=== PATIENT | female | born 2000 | race Two or more races ===

== ENCOUNTER 2020-01-04 19:09 | Emergency (ER) | payer OTHER ==
[~2020-01-04] VITALS: Ht 167.6 cm; Wt 59.0 kg
--- NOTE | 2020-01-04 19:16 | NUR ---
DR VALENCIA AT THE BED SIDE
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
--- NOTE | 2020-01-04 19:22 | NUR ---
CALLED POISON CONTROL [phone] SPOKE WITH TREASURE: WATCH FOR VOMITTING, DO TOXICOLOGY AND CHEMISTRY. OBSERVE FOR 4 HOURS FROM TIME OF INGESTION. POSSIBLE GI IRRITATION.
--- NOTE | 2020-01-04 19:31 | NUR ---
TOLL LINE MECHANIC AT BEDSIDE FOR LAB. AWAITING URINE SAMPLE.
[2020-01-04 19:34] LABS: BASOPHILS % (AUTO) 0.7 % (0.0-2.0); EOSINOPHILS % (AUTO) 1.1 % (0.0-6.0); HEMATOCRIT 41 % (33-45); HEMOGLOBIN 13.6 g/dL (11.5-14.8); LYMPHOCYTES # (AUTO) 1.5 /CMM (0.8-4.8); LYMPHOCYTES % (AUTO) 31.1 % (20.0-44.0); MEAN CORPUSCULAR HGB CONC 33 g/dl (31.0-36.0); MEAN CORPUSCULAR VOLUME 88 fL (82-100); MONOCYTES # (AUTO) 0.4 /CMM (0.1-1.30); MONOCYTES % (AUTO) 8.9 % (2.0-12.0); NEUTROPHILS # (AUTO) 2.9 /CMM (1.8-8.9); NEUTROPHILS % (AUTO) 58.2 % (43.0-81.0); PLATELET COUNT (AUTO) 366 /CMM (150-450); RED BLOOD CELL COUNT(AUTO) 4.66 MIL/uL (4.0-5.2); WHITE BLOOD COUNT (AUTO) 4.9 K/uL (4.3-11.0)
[2020-01-04 19:40] LABS: CALCIUM, SERUM 8.4 mg/dL (8.5-10.1); CARBON DIOXIDE 26 mmol/L (21-32); CHLORIDE 106 mmol/L (98-107); CREATININE 0.8 mg/dL (0.6-1.3); GLUCOSE 86 mg/dL (74-106); POTASSIUM 3.6 mmol/L (3.5-5.1); SODIUM SERUM 142 mmol/L (136-145); UREA NITROGEN, BLOOD 12 mg/dL (7-18)
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
--- NOTE | 2020-01-04 19:42 | NUR ---
PT PLACED ON RESTRAINTS PER MD VERBAL ORDER.
[2020-01-04 19:46] LABS: ACETAMINOPHEN 0 ug/ml (10-30); ALANINE AMINOTRANSFERASE 26 U/L (12-78); ALBUMIN 3.5 g/dL (3.4-5.0); ALCOHOL, BLOOD < 3 mg/dL (0-0); ALKALINE PHOSPHATASE 108 U/L (46-116); ASPARTATE AMINOTRANSFERASE 18 U/L (15-37); BILIRUBIN,DIRECT 0.1 mg/dL (0.0-0.2); BILIRUBIN,TOTAL 0.3 mg/dL (0.2-1.0); SALICYLATE 0.8 mg/dL (2.8-20.0); TOTAL PROTEIN, SERUM 7.5 g/dL (6.4-8.2)
[2020-01-04 20:34] LABS: BILIRUBIN,URINE Negative (NEGATIVE); BLOOD, URINE Negative Ery/uL (NEGATIVE); COLOR,URINE Yellow (YELLOW); KETONES,URINE Negative (NEGATIVE); LEUKOCYTE ESTERASE ,URINE Negative (NEGATIVE); NITRITE, URINE Negative (NEGATIVE); PROTEIN,URINE Negative (NEGATIVE); UGLUCOSE Negative (NEGATIVE); UROBILINOGEN,URINE 0.2 EU/dL (0.2)
--- NOTE | 2020-01-04 20:38 | NUR ---
PT NOW COOPERATIVE, RESTRAINTS REMOVED. AWAITING URINE SAMPLE.
[2020-01-04 20:41] LABS: APPEARANCE,URINE CLEAR (CLEAR)
--- NOTE | 2020-01-04 21:17 | NUR ---
PAGED CHARGE LOADER
--- NOTE | 2020-01-04 21:41 | NUR ---
Patient is resting comfortably in bed. Easily aroused. VSS
--- NOTE | 2020-01-04 22:17 | NUR ---
REC'D A CALL FROM FRACISCO FROM CRISIS TEAM. PER FRACISCO, SHE WILL BE HERE IN AN HOUR.
--- NOTE | 2020-01-05 01:27 | NUR ---
Patient is resting comfortably in bed. Easily aroused. VSS.
--- NOTE | 2020-01-05 02:23 | NUR ---
RECALLED JUDITH BRUSH PAINTER. NO ANSWER
--- NOTE | 2020-01-05 02:24 | NUR ---
RECEIVED CALL FROM JUDITH CAHN, SAYS SHE'LL BE HERE SOON IN AN HOUR OR SO.
--- NOTE | 2020-01-05 03:05 | NUR ---
FRACISCO AT BEDSIDE
[2020-01-05 03:35] VITALS: BP 123/75
--- NOTE | 2020-01-05 03:35 | NUR ---
Patient discharged to home in stable condition. Written and verbal after care instructions given. Patient verbalizes understanding of instruction. Pt ambulated with steady gait. Left using an UBER.
== END 2020-01-05 03:36 | disposition home or self-care (01) ==
LOC: ER 19:10
DX: T54.92XA Toxic effect of unspecified corrosive substance, intentional self-harm, initial encounter (principal); F32.9 Major depressive disorder, single episode, unspecified; Y92.89 Other specified places as the place of occurrence of the external cause
CPT/HCPCS: 36415; 80048; 80076; 80305; 80307; 80329; 81001; 84703; 85025; 99285; G0480; 81000-TC

== ENCOUNTER 2020-11-22 08:30 | Emergency (ER) | payer OTHER ==
[~2020-11-22] VITALS: Ht 160 cm; Wt 60.8 kg
[2020-11-22] MEDS ORDERED: ONDANSETRON HCL/PF 4 MG/2 ML VIAL ONE (08:43)
--- NOTE | 2020-11-22 08:45 | NUR ---
Patient came in to the er c/o Nausea, vomiting, and abdominal pain since this morning. On room air, breathing evenly and unlabored. Connected to the monitor and pulse ox. kept comfortable, will continue to monitor accordingly.
[2020-11-22] MEDS ORDERED: IV NS 0.9% 1,000 ML BAG IV ONE (09:00)
[2020-11-22] MEDS ORDERED: ONDANSETRON HCL/PF 4 MG/2 ML VIAL IVP ONE (09:00)
[2020-11-22 09:01] LABS: BASOPHILS % (AUTO) 0.6 % (0.0-2.0); BILIRUBIN,URINE Negative (NEGATIVE); COLOR,URINE YELLOW (YELLOW); HEMATOCRIT 40 % (33-45); HEMOGLOBIN 13.3 g/dL (11.5-14.8); LEUKOCYTE ESTERASE ,URINE Negative (NEGATIVE); LYMPHOCYTES # (AUTO) 0.8 /CMM (0.8-4.8); LYMPHOCYTES % (AUTO) 9.7 % (20.0-44.0); MEAN CORPUSCULAR HGB CONC 33 g/dl (31.0-36.0); MEAN CORPUSCULAR VOLUME 87 fL (82-100); MONOCYTES # (AUTO) 0.2 /CMM (0.1-1.30); MONOCYTES % (AUTO) 2.8 % (2.0-12.0); NEUTROPHILS # (AUTO) 6.8 /CMM (1.8-8.9); NEUTROPHILS % (AUTO) 86.9 % (43.0-81.0); NITRITE, URINE Negative (NEGATIVE); PH,URINE 8.5 (5.0-8.0); PLATELET COUNT (AUTO) 311 /CMM (150-450); PROTEIN,URINE Trace mg/dl (NEGATIVE); RED BLOOD CELL COUNT(AUTO) 4.61 MIL/uL (4.0-5.2); UGLUCOSE Negative (NEGATIVE); UROBILINOGEN,URINE 0.2 EU/dL (0.2); WHITE BLOOD COUNT (AUTO) 7.8 K/uL (4.3-11.0)
[2020-11-22 09:05] LABS: BACTERIA,URINE Few /HPF (None Seen); RBC,URINE 0-2 /HPF (0-2); WBC,URINE 0-2 /HPF (0-3)
[2020-11-22 09:33] LABS: CALCIUM, SERUM 9.2 mg/dL (8.5-10.1); CREATININE 0.6 mg/dL (0.6-1.3); POTASSIUM 3.6 mmol/L (3.5-5.1)
[2020-11-22 09:38] LABS: ALBUMIN 4.2 g/dL (3.4-5.0); BILIRUBIN,DIRECT 0.1 mg/dL (0.0-0.2); BILIRUBIN,TOTAL 0.3 mg/dL (0.2-1.0); TOTAL PROTEIN, SERUM 8.4 g/dL (6.4-8.2)
[2020-11-22] MEDS ORDERED: ONDA4TAB5 PO (09:45)
[2020-11-22 10:04] VITALS: BP 111/68
--- NOTE | 2020-11-22 10:04 | NUR ---
Patient discharged to home in stable condition. Written and verbal after care instructions given. Patient verbalizes understanding of instruction.IV removed. Catheter intact and site benign. Pressure and 4x4 applied to site. No bleeding noted.
== END 2020-11-22 10:04 | disposition home or self-care (01) ==
LOC: ER 08:33
DX: R11.2 Nausea with vomiting, unspecified (principal); R10.84 Generalized abdominal pain
CPT/HCPCS: 36415; 80048; 80076; 81001; 83690; 84703; 85025; 96361; 96374; 99283; J2405; J7030

== ENCOUNTER 2021-01-13 23:47 | Emergency (ER) | payer OTHER ==
[~2021-01-13] VITALS: Ht 167.6 cm; Wt 59.0 kg
[~2021-01-13 23:47] MED LIST: ONDA4TAB5 PO
[2021-01-14] MEDS ORDERED: CEFTRIAXONE 500 MG VIAL IM ONE (01:00)
[2021-01-14] MEDS ORDERED: METRONIDAZOLE 500 MG TABLET PO ONE (01:00)
[2021-01-14] MEDS ORDERED: AZITHROMYCIN 250 MG TABLET PO ONE (01:00)
[2021-01-14 01:06] LABS: BILIRUBIN,URINE Negative (NEGATIVE); COLOR,URINE YELLOW (YELLOW); LEUKOCYTE ESTERASE ,URINE Small (NEGATIVE); NITRITE, URINE Negative (NEGATIVE); PH,URINE 6.5 (5.0-8.0); PROTEIN,URINE Trace mg/dl (NEGATIVE); UGLUCOSE Negative (NEGATIVE); UROBILINOGEN,URINE 0.2 EU/dL (0.2)
[2021-01-14] MEDS ORDERED: METRONIDAZOLE 500 MG TABLET ONE (01:13)
[2021-01-14] MEDS ORDERED: CEFTRIAXONE 500 MG VIAL ONE (01:13)
[2021-01-14] MEDS ORDERED: AZITHROMYCIN 250 MG TABLET ONE (01:13)
[2021-01-14] MEDS ORDERED: LIDOCAINE /MPF 1% VIAL 5 ML VIAL ONE (01:14)
[2021-01-14 01:29] LABS: BACTERIA,URINE 2+ /HPF (None Seen); WBC,URINE 51-80 /HPF (0-3)
[2021-01-14 01:30] LABS: SQUAMOUS EPITHELIAL CELL,UR Moderate /HPF (None Seen); TRICHOMONAS,URINE Rare /HPF (None Seen); URINE AMORPHOUS URATE Few /HPF (None Seen)
[2021-01-14 01:31] LABS: MUCUS,URINE Few /LPF (None Seen)
[2021-01-14] MEDS ORDERED: NITR100C6 PO (01:38)
[2021-01-14 01:42] VITALS: BP 110/79
--- NOTE | 2021-01-14 01:42 | NUR ---
Patient discharged to home in stable condition. Written and verbal after care instructions given. Patient verbalizes understanding of instruction.Pt ambulatory with a steady gait
== END 2021-01-14 01:43 | disposition home or self-care (01) ==
LOC: ER 23:49
DX: N39.0 Urinary tract infection, site not specified (principal)
CPT/HCPCS: 81001; 84703; 87081; 87110; 87210; 96372; 99283; J0696; J3490

== ENCOUNTER 2021-02-04 18:39 | Emergency (ER) | payer OTHER ==
[~2021-02-04] VITALS: Ht 170.2 cm; Wt 65.8 kg
[~2021-02-04 18:39] MED LIST changes: +NITR100C6 PO
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
--- NOTE | 2021-02-04 19:39 | NUR ---
pt is medically cleared for booking and released under the care of [employer] officer. Pt is ambulatory on steady gait.
[2021-02-04 19:51] VITALS: BP 118/65
== END 2021-02-04 19:52 ==
LOC: ER 18:46
DX: S13.8XXA Sprain of joints and ligaments of other parts of neck, initial encounter (principal); S00.03XA Contusion of scalp, initial encounter; F12.90 Cannabis use, unspecified, uncomplicated; V49.69XA Unspecified car occupant injured in collision with other motor vehicles in traffic accident, initial encounter; Y93.89 Activity, other specified; Y92.413 State road as the place of occurrence of the external cause; Y99.8 Other external cause status
CPT/HCPCS: 70450-TC; 72125-TC

== ENCOUNTER 2021-06-08 15:46 | Emergency (ER) | payer OTHER ==
[~2021-06-08] VITALS: Ht 167.6 cm; Wt 68.0 kg
--- NOTE | 2021-06-08 15:50 | NUR ---
urine collected and sent to lab
--- NOTE | 2021-06-08 15:50 | NUR ---
AAOX3, C/o Burning sensation during urination x 3 days, reported that her partner was Dx with Chlamydia, +yellow color discharge. Resp is even and unlabored with no apparent distress noted. Skin is warm and non diaphoretic. Awaiting md for eval.
[2021-06-08] MEDS ORDERED: CEFTRIAXONE 500 MG VIAL ONE (16:13)
[2021-06-08] MEDS ORDERED: DOXYCYCLINE HYCLATE (100 MG) 100 MG TABLET ONE (16:13)
[2021-06-08] MEDS ORDERED: LIDOCAINE /MPF 1% VIAL 5 ML VIAL ONE (16:14)
[2021-06-08] MEDS ORDERED: DOXY100T2 PO (16:15)
[2021-06-08 16:21] LABS: BILIRUBIN,URINE Negative (NEGATIVE); COLOR,URINE YELLOW (YELLOW); LEUKOCYTE ESTERASE ,URINE Negative (NEGATIVE); NITRITE, URINE Negative (NEGATIVE); PH,URINE 8.5 (5.0-8.0); PROTEIN,URINE Negative (NEGATIVE); UGLUCOSE Negative (NEGATIVE); UROBILINOGEN,URINE 0.2 EU/dL (0.2)
[2021-06-08 16:22] LABS: BACTERIA,URINE Few /HPF (None Seen); SQUAMOUS EPITHELIAL CELL,UR Few /HPF (None Seen); WBC,URINE 0-2 /HPF (0-3)
[2021-06-08 16:27] VITALS: BP 123/63
--- NOTE | 2021-06-08 16:27 | NUR ---
Patient discharged to home in stable condition. Written and verbal after care instructions given. Patient verbalizes understanding of instruction.
[2021-06-08] MEDS ORDERED: DOXYCYCLINE HYCLATE (100 MG) 100 MG TABLET PO ONE (16:30)
[2021-06-08] MEDS ORDERED: CEFTRIAXONE 500 MG VIAL IM ONE (16:30)
== END 2021-06-08 16:28 | disposition home or self-care (01) ==
LOC: ER 15:51
DX: Z20.2 Contact with and (suspected) exposure to infections with a predominantly sexual mode of transmission (principal); F17.200 Nicotine dependence, unspecified, uncomplicated; Z79.899 Other long term (current) drug therapy
CPT/HCPCS: 81001; 84703; 87491; 87591; 96372; 99283; J0696; J3490

== ENCOUNTER 2021-06-13 22:32 | Emergency (ER) | payer OTHER ==
[~2021-06-13] VITALS: Ht 167.6 cm; Wt 65.8 kg
[~2021-06-13 22:32] MED LIST changes: +DOXY100T2 PO
--- NOTE | 2021-06-13 22:50 | NUR ---
PT BIBSELF C/O LT ARM PAIN. RT THIGH PAIN, LEFT EAR PAIN WITH RINGING, AND BILATERAL JAW PAIN. PT ATTACHED TO MONITOR AND POX. MD AT BEDSIDE. PT GIVEN BLANKET AND CALL LIGHT WITHIN REACH
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
--- NOTE | 2021-06-13 23:55 | NUR ---
BLOOD SENT TO LAB
[2021-06-13 23:56] LABS: BASOPHILS # (AUTO) 0.1 K/uL (0.0-0.2); BASOPHILS % (AUTO) 1.8 % (0.0-2.0); EOSINOPHILS % (AUTO) 1.6 % (0.0-6.0); HEMATOCRIT 36 % (33-45); HEMOGLOBIN 11.8 g/dL (11.5-14.8); LYMPHOCYTES # (AUTO) 1.9 K/uL (0.8-4.8); LYMPHOCYTES % (AUTO) 42.6 % (20.0-44.0); MEAN CORPUSCULAR HGB CONC 33 g/dl (31.0-36.0); MEAN CORPUSCULAR VOLUME 86 fL (82-100); MONOCYTES # (AUTO) 0.6 K/uL (0.1-1.30); MONOCYTES % (AUTO) 13.2 % (2.0-12.0); NEUTROPHILS # (AUTO) 1.9 K/uL (1.8-8.9); NEUTROPHILS % (AUTO) 40.8 % (43.0-81.0); PLATELET COUNT (AUTO) 297 K/uL (150-450); RED BLOOD CELL COUNT(AUTO) 4.19 MIL/uL (4.0-5.2); WHITE BLOOD COUNT (AUTO) 4.6 K/uL (4.3-11.0)
[2021-06-14 00:05] LABS: CALCIUM, SERUM 7.7 mg/dL (8.5-10.1); CREATININE 0.8 mg/dL (0.6-1.3); POTASSIUM 4.1 mmol/L (3.5-5.1)
--- NOTE | 2021-06-14 00:15 | NUR ---
TAEN TO CT
--- NOTE | 2021-06-14 00:20 | NUR ---
RETURNED FROM CT
[2021-06-14] MEDS ORDERED: IV NS 0.9% 1,000 ML BAG IV ONE ×2 (01:30)
[2021-06-14] MEDS ORDERED: ALPRAZOLAM 0.25 MG TABLET PO ONE (01:30)
[2021-06-14] MEDS ORDERED: ACETAMINOPHEN 325 MG TABLET PO ONE (01:30)
[2021-06-14] MEDS ORDERED: ACETAMINOPHEN ES 500 MG TABLET ONE (01:43)
[2021-06-14] MEDS ORDERED: ALPRAZOLAM 0.25 MG TABLET ONE (01:50)
--- NOTE | 2021-06-14 02:21 | NUR ---
Patient discharged to home in stable condition. Written and verbal after care instructions given. Patient verbalizes understanding of instruction. IV removed. Catheter intact and site benign. Pressure and 4x4 applied to site. No bleeding noted. Pt ambulatory with a steady gait
[2021-06-14 02:45] VITALS: BP 114/67
== END 2021-06-14 02:21 | disposition home or self-care (01) ==
LOC: ER 22:38
DX: S09.90XA Unspecified injury of head, initial encounter (principal); Y04.0XXA Assault by unarmed brawl or fight, initial encounter; Y92.89 Other specified places as the place of occurrence of the external cause; H93.12 Tinnitus, left ear; D64.9 Anemia, unspecified; R79.89 Other specified abnormal findings of blood chemistry
CPT/HCPCS: 36415; 70450; 70486; 72125; 80048; 84703; 85025; 96360; 96361; 99285; J7030 ×2

== ENCOUNTER 2022-01-18 00:12 | Emergency (ER) | payer OTHER ==
[~2022-01-18] VITALS: Ht 170.2 cm; Wt 63.0 kg
[2022-01-18 01:17] VITALS: BP 104/61
[2022-01-18] MEDS ORDERED: CEFTRIAXONE 500 MG VIAL ONE (01:41)
[2022-01-18] MEDS ORDERED: LIDOCAINE /MPF 1% VIAL 5 ML VIAL ONE (01:42)
[2022-01-18] MEDS ORDERED: CEFTRIAXONE 1 G VIAL IM ONE (02:00)
[2022-01-18] MEDS ORDERED: DOXY-326 PO (02:33)
--- NOTE | 2022-01-18 02:39 | NUR ---
Patient discharged to home in stable condition. Written and verbal after care instructions given. Patient verbalizes understanding of instruction. Pt ambulatory with a steady gait
== END 2022-01-18 02:39 | disposition home or self-care (01) ==
LOC: ER 00:16
DX: Z11.3 Encounter for screening for infections with a predominantly sexual mode of transmission (principal); F17.200 Nicotine dependence, unspecified, uncomplicated; Z79.899 Other long term (current) drug therapy
CPT/HCPCS: 84703; 96372; 99283; J0696; J3490

== ENCOUNTER 2022-03-09 17:35 | Emergency (ER) | payer OTHER ==
[~2022-03-09] VITALS: Ht 160 cm; Wt 54.4 kg
[~2022-03-09 17:35] MED LIST changes: +DOXY-326 PO
--- NOTE | 2022-03-09 18:08 | NUR ---
Escorted by Officer Antony On 5150 and handcuffed. Pt sleepy-easily awakened. Responsive but refusing to answer questions or provide information, Pulling on lines. Uncooperative. Pt able to Doze mid conversation
[2022-03-09 18:29] LABS: BASOPHILS % (AUTO) 0.5 % (0.0-2.0); EOSINOPHILS % (AUTO) 0.7 % (0.0-6.0); HEMATOCRIT 35 % (33-45); HEMOGLOBIN 11.6 g/dL (11.5-14.8); LYMPHOCYTES # (AUTO) 1.7 K/uL (0.8-4.8); LYMPHOCYTES % (AUTO) 35.7 % (20.0-44.0); MEAN CORPUSCULAR HGB CONC 33 g/dl (31.0-36.0); MEAN CORPUSCULAR VOLUME 85 fL (82-100); MONOCYTES # (AUTO) 0.5 K/uL (0.1-1.30); MONOCYTES % (AUTO) 10.5 % (2.0-12.0); NEUTROPHILS # (AUTO) 2.5 K/uL (1.8-8.9); NEUTROPHILS % (AUTO) 52.6 % (43.0-81.0); PLATELET COUNT (AUTO) 244 K/uL (150-450); RED BLOOD CELL COUNT(AUTO) 4.16 MIL/uL (4.0-5.2); WHITE BLOOD COUNT (AUTO) 4.8 K/uL (4.3-11.0)
[2022-03-09 20:06] LABS: ALANINE AMINOTRANSFERASE 11 U/L (12-78); ALBUMIN 3.5 g/dL (3.4-5.0); ALCOHOL, BLOOD < 3 mg/dL (0-0); ALKALINE PHOSPHATASE 98 U/L (46-116); ASPARTATE AMINOTRANSFERASE 11 U/L (15-37); BILIRUBIN,DIRECT 0.1 mg/dL (0.0-0.2); BILIRUBIN,TOTAL 0.3 mg/dL (0.2-1.0); CALCIUM, SERUM 8.4 mg/dL (8.5-10.1); CARBON DIOXIDE 26 mmol/L (21-32); CHLORIDE 105 mmol/L (98-107); CREATININE 0.8 mg/dL (0.6-1.3); POTASSIUM 3.9 mmol/L (3.5-5.1); SODIUM SERUM 139 mmol/L (136-145); TOTAL PROTEIN, SERUM 7.3 g/dL (6.4-8.2); UREA NITROGEN, BLOOD 13 mg/dL (7-18)
[2022-03-09 20:17] LABS: ACETAMINOPHEN < 10 ug/ml (10-30)
[2022-03-09 20:41] LABS: GLUCOSE 92 mg/dL (74-106)
--- NOTE | 2022-03-09 20:47 | NUR ---
NOT ABLE TO COLLECTED URINE AT THIS TIME WILL F/U WITH SAMPLE
--- NOTE | 2022-03-09 22:33 | NUR ---
URINE COLLECTED AND SENT TO LAB
[2022-03-09 23:53] LABS: BILIRUBIN,URINE NEGATIVE (NEGATIVE); COLOR,URINE YELLOW (YELLOW); LEUKOCYTE ESTERASE ,URINE NEGATIVE (NEGATIVE); NITRITE, URINE NEGATIVE (NEGATIVE); PROTEIN,URINE NEGATIVE (NEGATIVE); UGLUCOSE NEGATIVE (NEGATIVE); UROBILINOGEN,URINE 0.2 EU/dL (0.2)
--- NOTE | 2022-03-10 00:26 | NUR ---
CRISIS TEAM PAGED, ETA 1 HR
--- NOTE | 2022-03-10 00:59 | NUR ---
ART AT PATIENT BEDSIDE
--- NOTE | 2022-03-10 01:10 | NUR ---
ART AT PATIENT BEDSIDE BUT PT STATED SHE WAS TOO TIRED TO TALK TO ART. WILL HAVE PT REASSESD BY CRISIS TEAM IN THE MORNING
--- NOTE | 2022-03-10 01:23 | NUR ---
ADLS DONE. PT AMBULATED TO RESTROOM WITH SUPERVISION
--- NOTE | 2022-03-10 06:19 | NUR ---
PT SLEPT WELL THROUGHOUT NIGHT. VSS. PT IN NO ACUTE DISTRESS AT THIS TIME. ALL NEEDS MET AT THIS TIME .
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
[2022-03-10] MEDS ORDERED: NALO1DIS2 IM (12:26)
--- NOTE | 2022-03-10 13:48 | NUR ---
Art came and broke the hold. Pt. no longer meets criteria for a 5150 hold. Brother stated that he will come pick up operator pt. after work [unable to provide an ETA].
--- NOTE | 2022-03-10 13:49 | NUR ---
Brother Stanislav [phone], Mother Lovely [phone]
--- NOTE | 2022-03-10 14:04 | NUR ---
PER DEANNA VELARDE, PATIENT WILL BE PICKED UP BY BROTHER AFTER WORK, DID NOT SPECIFY TIME
[2022-03-10 16:30] VITALS: BP 113/64
--- NOTE | 2022-03-10 17:00 | NUR ---
VERBALIZED UNDERSTANDING OF ACI,AMBULATORY,STEADY GAIT,DISCHARGE TO WITH FAMILY
== END 2022-03-10 18:14 | disposition home or self-care (01) ==
LOC: ER 17:38
DX: R45.851 Suicidal ideations (principal); F17.200 Nicotine dependence, unspecified, uncomplicated; Z79.899 Other long term (current) drug therapy
CPT/HCPCS: 36415; 80048-TC; 80076-TC; 84703-TC; 85025-TC; G0480

== ENCOUNTER 2022-05-01 02:10 | Emergency (ER) | payer MEDICAID, OTHER ==
[~2022-05-01] VITALS: Ht 167.6 cm; Wt 65.8 kg
[~2022-05-01 02:10] MED LIST changes: +NALO1DIS2 IM
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
--- NOTE | 2022-05-01 02:21 | NUR ---
EMT AT BEDSIDE FOR EKG
--- NOTE | 2022-05-01 02:27 | NUR ---
LAC #20G S/L BLOOD COLLECTED AND SENT TO LAB
[2022-05-01 02:44] LABS: BASOPHILS % (AUTO) 0.4 % (0.0-2.0); EOSINOPHILS % (AUTO) 0.7 % (0.0-6.0); HEMATOCRIT 40 % (33-45); HEMOGLOBIN 13.3 g/dL (11.5-14.8); LYMPHOCYTES # (AUTO) 2.4 K/uL (0.8-4.8); MEAN CORPUSCULAR HGB CONC 33 g/dl (31.0-36.0); MEAN CORPUSCULAR VOLUME 85 fL (82-100); MONOCYTES # (AUTO) 0.8 K/uL (0.1-1.30); MONOCYTES % (AUTO) 10.6 % (2.0-12.0); NEUTROPHILS # (AUTO) 4.3 K/uL (1.8-8.9); NEUTROPHILS % (AUTO) 56.3 % (43.0-81.0); PLATELET COUNT (AUTO) 468 K/uL (150-450); RED BLOOD CELL COUNT(AUTO) 4.72 MIL/uL (4.0-5.2); WHITE BLOOD COUNT (AUTO) 7.6 K/uL (4.3-11.0)
[2022-05-01 02:46] LABS: BILIRUBIN,URINE NEGATIVE (NEGATIVE); COLOR,URINE YELLOW (YELLOW); LEUKOCYTE ESTERASE ,URINE NEGATIVE (NEGATIVE); NITRITE, URINE NEGATIVE (NEGATIVE); PROTEIN,URINE NEGATIVE (NEGATIVE); UGLUCOSE NEGATIVE (NEGATIVE); UROBILINOGEN,URINE 0.2 EU/dL (0.2)
[2022-05-01 03:09] LABS: CARBON DIOXIDE 29 mmol/L (21-32); CHLORIDE 102 mmol/L (98-107); CREATININE 1.1 mg/dL (0.6-1.3); GLUCOSE 87 mg/dL (74-106); POTASSIUM 4.5 mmol/L (3.5-5.1); SODIUM SERUM 139 mmol/L (136-145); UREA NITROGEN, BLOOD 22 mg/dL (7-18)
[2022-05-01 03:12] LABS: ALANINE AMINOTRANSFERASE 33 U/L (12-78); ALBUMIN 3.8 g/dL (3.4-5.0); ALCOHOL, BLOOD < 3 mg/dL (0-0); ALKALINE PHOSPHATASE 149 U/L (46-116); ASPARTATE AMINOTRANSFERASE 27 U/L (15-37); BILIRUBIN,DIRECT 0.1 mg/dL (0.0-0.2); BILIRUBIN,TOTAL 0.3 mg/dL (0.2-1.0); TOTAL PROTEIN, SERUM 8.3 g/dL (6.4-8.2)
[2022-05-01 03:13] LABS: ACETAMINOPHEN < 2 ug/ml (10-30)
--- NOTE | 2022-05-01 05:25 | NUR ---
LEFT VOICE MESSAGE TO: MARICRUZ (BROTHER) [phone] & DOT (MOTHER) [phone]
--- NOTE | 2022-05-01 05:39 | NUR ---
Patient discharged to home in stable condition. Written and verbal after care instructions given. Patient verbalizes understanding of instruction. PT ambulatory with a steady gait
[2022-05-01 05:46] VITALS: BP 125/66
== END 2022-05-01 05:46 | disposition home or self-care (01) ==
LOC: ER 02:11
DX: T40.411A Poisoning by fentanyl or fentanyl analogs, accidental (unintentional), initial encounter (principal); E16.2 Hypoglycemia, unspecified; Z79.899 Other long term (current) drug therapy; Y92.89 Other specified places as the place of occurrence of the external cause
CPT/HCPCS: 36415; 80048-TC; 80076-TC; 82962-TC; 85025-TC; G0480

== ENCOUNTER 2023-06-14 21:18 | Emergency (ER) | payer OTHER ==
[~2023-06-14] VITALS: Ht 167.6 cm; Wt 79.8 kg
[2023-06-14 23:33] LABS: APPEARANCE,URINE SLIGHTLY CLOUDY (CLEAR); BILIRUBIN,URINE 1+ (NEGATIVE); BLOOD, URINE NEGATIVE Ery/uL (NEGATIVE); COLOR,URINE YELLOW (YELLOW); KETONES,URINE TRACE mg/dL (NEGATIVE); LEUKOCYTE ESTERASE ,URINE NEGATIVE (NEGATIVE); NITRITE, URINE NEGATIVE (NEGATIVE); PH,URINE 6.5 (5.0-8.0); PROTEIN,URINE TRACE mg/dl (NEGATIVE); UGLUCOSE NEGATIVE (NEGATIVE)
[2023-06-14 23:43] LABS: PREGNANCY TEST URINE QUAL NEGATIVE (NEGATIVE)
[2023-06-15] MEDS ORDERED: IBUP-1955 PO (00:02)
[2023-06-15 00:52] VITALS: BP 123/74; TEMP 98.7; O2SAT 100
[2023-06-15 01:28] LABS: ADD URINE CULTURE YES; BACTERIA,URINE 2+ /HPF (None Seen); MUCUS,URINE Few /LPF (None Seen); RBC,URINE 0-2 /HPF (0-2); WBC,URINE 0-2 /HPF (0-3)
== END 2023-06-15 00:55 | disposition home or self-care (01) ==
LOC: ER 21:24
DX: N93.9 Abnormal uterine and vaginal bleeding, unspecified (principal); F17.200 Nicotine dependence, unspecified, uncomplicated
CPT/HCPCS: 76856-TC; 81001; 84703-TC; 87086-TC